=== PATIENT | female | born 1930 | race Caucasian/White ===

== ENCOUNTER → 2016-08-21 | Outpatient (CLI) | payer MEDICARE ==
[~2016-08-21] MED LIST: ACET-2303 PO; ACET80TA PO; ACHD5005 PO; ALBU2.5V4 IH; ALPR.25T PO; AMOX500C2 PO; ANTI1CAP3 PO; APIX5TAB PO; ASCO500C14 PO; ASP325TEC; ASP81TEC; ASP81TEC PO; ASPI-892; ATEN-155 PO; ATEN25TA PO; ATN25T; BISA5TAB8 PO; C250T PO; CALC-80 PO; CALC-97 PO; CALC600T; CALCIUM D PO; CALTRATE 600 +1 EACH PO; CAPS42.58 TP; CEFD300C3 PO; CEPH500C PO; CHOL10003 PO; CHOL200035 PO; CHOL50003; CLC500CT PO; CLD600T; CYCL1DRO OU; DCS100C PO; DEXL60CA5 PO; DIPH25TA31 PO; DOCU50LI PO; DOXY25TA43 PO; ENAL5TAB PO; ENLP5T; ESCT10T; ESCT10T PO; FAMO20TA5 PO; FAMO40OR2 PO; FERR-74 PO; FERR300L PO; FRSM20T; FURO20TA4 PO; FURO40TA4 PO; GABA-488 PO; GBPN300C; GBPN300C PO; HCTZ12.5T; HYDR-3816 PO; HYDR-756 PO; HYDR1CAP2; HYDR1CAP2 PO; HYDROCODONE/APAP; IBUP-792 PO; KCL10CCR; LISI5TAB; LVCR25100; MAG30ORA2 PO; MAGN-77 PO; MAGN800O PO; MAXI TEARS; MELA1TAB16 PO; MELA1TAB22 PO; MMT17NA NS; MULT-608 PO; MULT-974 PO; MULT1TAB53 PO; MULT1TAB63; MV-M1TAB38 PO; NF-ESOM40C; NF-ESOM40C PO; NFAMINITAB PO; OLME20TA5; OMEP20CA6; PANT20TA2 PO; POTA10CA43 PO; PROP10DR2 OU; PROP15DR; PROP15DR OP; PROP1DRO4 OU; ROCEPHIN IM/IV; ROPI2TAB3; ROPI2TAB3 PO; RPN.25T; TRAM-21 PO; VIT1CAPS9 PO; WARF6TAB PO; WRF1T; WRF2T; WRF5T; WRF5T PO; [UNRECOGNIZED DRUG - CODE]; [UNRECOGNIZED DRUG - CODE] OP; colace
--- OUTSIDE RECORDS SUMMARY | 2016-08-21 14:22 | XMS REPORT | Continuity of Care Document ---
Author Author [facility] Organization [facility] Address Unknown Phone Unavailable Care Team Providers Care Flagger Name Role Phone PCP Unavailable Source Comments Some departments are not documenting in the electronic medical record. If you do not see the information that you expected, contact Release of Information in the Health Information Management department at [phone] for further assistance in locating additional records.[facility] Active Allergies and Adverse Reactions Allergen Noted Date Severity Reactions Comments Fentanyl 04/11/2012 UNKNOWN / Duragesic Patch Macrodantin 04/11/2012 UNKNOWN Current Medications Prescription Sig. Disp. Refills Start End Date Status Date FUROSEMIDE (LASIX PO) Take 20 mg by mouth Active daily. gabapentin (NEURONTIN) Take 200 mg by mouth Active 100 mg capsule twice daily. aspirin EC 81 mg tablet Take 81 mg by mouth Active daily. esomeprazole DR(+) Take 40 mg by mouth every Active (NEXIUM) 40 mg capsule morning. 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 L ast Assessment & Plan: Botox today--all 100 units-- and RTC prn return of spasm Social History Tobacco Use Types Packs/Day Years Used Date Never Smoker Alcohol Use Drinks/Week oz/Week Comments No Last Filed Vital Signs Vital Sign Reading Time Taken Blood Pressure 150/90 04/23/2013 2:24 PM CDT Pulse 72 04/23/2013 2:24 PM CDT Temperature - - Respiratory Rate - - Height 1.626 m (5' 4") 04/13/2014 1:38 PM CDT Weight 70.308 kg (155 lb) 04/13/2014 1:38 PM CDT Body Mass Index 26.59 04/13/2014 1:38 PM CDT Oxygen Saturation - - Plan of Care Health Maintenance Due Date Last Done Comments Physical (Comprehensive) 1937 Exam Pertussis Vaccine 1941 Tetanus Vaccine 1947 Breast Cancer Screening 1970 Shingles Vaccine 1990 Osteoporosis Screening 1995 Prevnar/Pneumovax (#1) 1995 Influenza Vaccine 04/19/2015 Results from Last 3 Months Not on file
--- NOTE | 2016-08-21 14:53 | Diagnostic Imaging Report ---
INDICATION: Upper back pain. DISCUSSION: Single portable upright view of the chest was obtained, comparison 11/01/2015. Underlying changes of COPD are stable. Stable normal heart size. No focal consolidation, pleural fluid, or pneumothorax. IMPRESSION: 1. No acute cardiopulmonary process. Dictated by: Dictated on workstation # [id number]
--- NOTE | 2016-08-21 15:41 | Diagnostic Imaging Report ---
Two views of the lumbar spine. INDICATION: Back pain. FINDINGS: There is limited visualization of the lower lumbar spine and there is suggestion of spondylolisthesis of L4 over L5, probably grade 2. There is limited assessment of the posterior elements. There is osteopenia. There is a mild depression of the superior endplates of L1 and L2 levels, age indeterminate. There is a moderate to large amount of fecal material seen in the rectum. There are cholecystectomy clips in the upper right abdomen. IMPRESSION: Limited exam particularly in the lower lumbar spine. There is suggestion of L4 over L5 spondylolisthesis. Age-indeterminate compression fractures of L1 and L2 also seen. If clinically indicated, further evaluation with CT or MRI of the lumbar spine would be helpful. Dictated by: Dictated on workstation # [id number]
== END ==
LOC: RAD 14:19
PROVIDERS: ATTEND Family Medicine
DX: M54.5 Low back pain (principal)
CPT/HCPCS: 71010; 72100

== ENCOUNTER → 2016-12-16 | Outpatient (CLI) | payer MEDICARE ==
[2016-12-16 11:10] LABS: BILIRUBIN,URINE NEGATIVE (NEGATIVE); KETONES,URINE NEGATIVE (NEGATIVE); LEUKOCYTE ESTERASE ,URINE 1+ (NEGATIVE); NITRITE,URINE NEGATIVE (NEGATIVE); PH,URINE 6 (5-9); PROTEIN,URINE NEGATIVE (NEGATIVE); UROBILINOGEN,URINE NORMAL (NORMAL)
[2016-12-16 11:28] LABS: SQUAMOUS EPITHELIAL CELL,UR 0-2 /HPF
[2016-12-16 11:29] LABS: HYALINE CASTS, URINE 0-2 /LPF
== END ==
PROVIDERS: ATTEND Family Medicine
DX: N39.0 Urinary tract infection, site not specified (principal)
CPT/HCPCS: 81000; 87077; 87088; 87186

== ENCOUNTER → 2017-08-17 | Outpatient (CLI) | payer MEDICARE ==
[2017-08-17 17:33] LABS: CLARITY,URINE VERY CLOUDY; COLOR,URINE YELLOW; GLUCOSE, URINE (UA) NEGATIVE (NEGATIVE); KETONES,URINE 1+ (NEGATIVE); LEUKOCYTE ESTERASE ,URINE 3+ (NEGATIVE); NITRITE,URINE POSITIVE (NEGATIVE); PH,URINE 5 (5-9); PROTEIN,URINE 2+ (NEGATIVE); UROBILINOGEN,URINE 1 MG/DL (NORMAL)
[2017-08-17 17:37] LABS: BACTERIA,URINE LARGE /HPF; BILIRUBIN,URINE 1+ (NEGATIVE); CALCIUM OXALATE CRYSTALS,UR FEW /LPF; SQUAMOUS EPITHELIAL CELL,UR RARE /HPF; WBC,URINE 25-50 /HPF
== END ==
PROVIDERS: ATTEND Family Medicine
DX: Z87.440 Personal history of urinary (tract) infections (principal); R82.90 Unspecified abnormal findings in urine
CPT/HCPCS: 81000; 87088; 87186